=== PATIENT | female | born 1995 | race Caucasian/White ===

== ENCOUNTER 2022-12-23 09:07 | Emergency (ER) | payer BC, MEDICAID ==
[~2022-12-23] VITALS: Ht 175.3 cm; Wt 81.8 kg
[2022-12-23 10:51] VITALS: BP 130/87
== END 2022-12-23 11:01 | disposition home or self-care (01) ==
LOC: ER 09:08
DX: I82.812 Embolism and thrombosis of superficial veins of left lower extremity (principal); Z79.899 Other long term (current) drug therapy
CPT/HCPCS: 93971; 99284